=== PATIENT | male | born 1990 | race Caucasian/White ===

== ENCOUNTER 2020-04-21 19:00 | Emergency (ER) | payer SELFPAY ==
[2020-04-21 19:35] VITALS: BP 112/85; PULSE 63; TEMP 98.2; BMI 23.4
[2020-04-21] MEDS ORDERED: KETOROLAC TROMETHAMINE 30 MG/1 ML VIAL IM ONE (21:42)
[2020-04-21] MEDS ORDERED: KETOROLAC TROMETHAMINE 30 MG/1 ML VIAL ONE (21:52)
== END 2020-04-21 21:55 | disposition home or self-care (01) ==
LOC: JERFT 19:00
PROC: 3E0233Z Introduction of Anti-inflammatory into Muscle, Percutaneous Approach (ICD-10-PCS; principal; 2020-04-21)
DX: S16.1XXA Strain of muscle, fascia and tendon at neck level, initial encounter (principal)
CPT/HCPCS: 96372; 99284-25

== ENCOUNTER 2021-09-19 09:37 | Emergency (ER) | payer SELFPAY ==
[2021-09-19 09:50] VITALS: BP 111/65; PULSE 80; TEMP 97.9; BMI 23.4
[2021-09-19] MEDS ORDERED: CYCLOBENZAPRINE HCL 10 MG TABLET (FP) PO ONE (11:46)
[2021-09-19] MEDS ORDERED: KETOROLAC TROMETHAMINE 30 MG/1 ML VIAL IM ONE (11:46)
[2021-09-19] MEDS ORDERED: LIDOCAINE 5% TOPICAL PATCH TP ONE (11:47)
[2021-09-19] MEDS ORDERED: LIDOCAINE 5% TOPICAL PATCH ONE (12:00)
[2021-09-19] MEDS ORDERED: CYCLOBENZAPRINE HCL 10 MG TABLET (FP) ONE (12:01)
[2021-09-19] MEDS ORDERED: KETOROLAC TROMETHAMINE 30 MG/1 ML VIAL ONE (12:01)
[2021-09-19] MEDS ORDERED: LIDOCAINE PATCH REMOVAL MC SCH (22:00)
== END 2021-09-19 15:18 | disposition home or self-care (01) ==
LOC: JERFT 09:37
PROC: 3E023GC Introduction of Other Therapeutic Substance into Muscle, Percutaneous Approach (ICD-10-PCS; principal; 2021-09-19)
DX: M54.50 Low back pain, unspecified (principal)
CPT/HCPCS: 72100-TC-FY; 99284-25

== ENCOUNTER 2023-02-25 18:36 | Emergency (ER) | payer SELFPAY ==
[2023-02-25 18:43] VITALS: BP 123/79; PULSE 67; RESP 18; TEMP 98; BMI 23.4
[2023-02-25] MEDS ORDERED: TETRACAINE 0.5% HCL 0.6ML DROPPER.BOTTLE OS ONE (18:56)
[2023-02-25] MEDS ORDERED: FLUORESCEIN NA 1 EA STRIP OU ONE (18:56)
[2023-02-25] MEDS ORDERED: FLUORESCEIN NA 1 EA STRIP ONE (19:00)
[2023-02-25] MEDS ORDERED: TETRACAINE 0.5% OPHTH SOLN 2 ML BOTTLE ONE (19:01)
== END 2023-02-25 19:39 | disposition home or self-care (01) ==
LOC: JERFT 18:36
DX: H57.12 Ocular pain, left eye (principal)
CPT/HCPCS: 99283-25